=== PATIENT | female | born 1975 | race Two or more races ===

== ENCOUNTER 2018-06-07 14:13 | Emergency (ER) | payer OTHER ==
[~2018-06-07] VITALS: Ht 162.6 cm; Wt 72.6 kg
[~2018-06-07 14:13] MED LIST: ATENOLOL50 MG; AUGMENTIN PO; BENADRYL50 MG PO; CATAFLAM50 MG PO; CEFADROXIL500 MG PO; CIPRO500 MG PO; ENALAPRIL MALEA10 MG NGT; FOLIC ACID0.4 MG; LISINOPRIL5 MG; MEDROL4 MG PO; MOTRIN800 MG PO; NABUMETONE750 MG PO; NYSTATIN-TRIAMC15 GM TP; TUSSI-PRES B LIQ5 ML PO; TUSSIONEX PENNKI5 ML PO; VISTARIL50 MG PO; [UNRECOGNIZED DRUG - OTHER]; [UNRECOGNIZED DRUG - OTHER]
[2018-06-07] MEDS ORDERED: TOPROL XL50 M1 (14:35)
[2018-06-07] MEDS ORDERED: SKELAXIN800 MG PO ×2 (16:47→16:49)
[2018-06-07] MEDS ORDERED: CELEBREX100 MG PO (16:49)
== END 2018-06-07 17:04 | disposition home or self-care (01) ==
LOC: ER 14:13
DX: M70.852 Other soft tissue disorders related to use, overuse and pressure, left thigh (principal); M79.652 Pain in left thigh

== ENCOUNTER 2018-12-17 15:00 | Emergency (ER) | payer OTHER ==
[~2018-12-17] VITALS: Ht 162.6 cm; Wt 68.0 kg
[~2018-12-17 15:00] MED LIST changes: +CELEBREX100 MG PO; +SKELAXIN800 MG PO; +TOPROL XL50 M1
== END 2018-12-17 22:53 | disposition home or self-care (01) ==
LOC: ER 15:00
DX: N39.0 Urinary tract infection, site not specified (principal); D64.89 Other specified anemias